=== PATIENT | female | born 1980 | race African-American/Black ===

== ENCOUNTER 2016-08-01 08:30 | Emergency (ER) | payer MEDICAID ==
[~2016-08-01] VITALS: Ht 172.7 cm; Wt 79.0 kg
[~2016-08-01 08:30] MED LIST: [UNRECOGNIZED DRUG - REMARK]
[2016-08-01] MEDS ORDERED: MORPHINE SULFATE 4 MG/ML CPJ (NOT FOR IM USE) IV ONE ×2 (08:42→08:45)
[2016-08-01 08:45] VITALS: BP 176/72
== END 2016-08-01 09:20 | disposition short-term general hospital (02) ==
LOC: ER 08:45
DX: S31.109A Unspecified open wound of abdominal wall, unspecified quadrant without penetration into peritoneal cavity, initial encounter (principal); S41.101A Unspecified open wound of right upper arm, initial encounter; W34.09XA Accidental discharge from other specified firearms, initial encounter; Y93.89 Activity, other specified; Y99.8 Other external cause status; Y92.810 Car as the place of occurrence of the external cause
CPT/HCPCS: 74022; 96374; 99291; J2270